=== PATIENT | male | born 1950 | race Caucasian/White ===

== ENCOUNTER 2017-12-08 12:47 | Emergency (ER) | payer OTHER, MEDICARE ==
[~2017-12-08] VITALS: Ht 177.8 cm; Wt 81.7 kg
[2017-12-08 13:39] LABS: BASOPHILS ABSOLUTE AUTO 0.04 K/mm3 (0.00-0.23); BASOPHILS PERCENT AUTO 1 % (0-2); EOSINOPHILS ABSOLUTE AUTO 0.26 K/mm3 (0.00-0.68); EOSINOPHILS PERCENT AUTO 3 % (0-6); Hematocrit 44.2 % (37.0-53.0); Hemoglobin 14.5 g/dL (13.5-17.5); IMMATURE GRAN ABSOLUTE AUTO 0.03 K/mm3 (0.00-0.10); IMMATURE GRAN PERCENT AUTO 0 % (0-1); LYMPHOCYTES ABSOLUTE AUTO 2.16 K/mm3 (0.84-5.20); LYMPHOCYTES PERCENT AUTO 28 % (21-46); MONOCYTES PERCENT AUTO 8 % (4-13); Mean Corpuscular HGB 30.7 pg (26.0-34.0); Mean Corpuscular HGB Conc 32.8 g/dL (31.5-36.5); Mean Corpuscular Volume 93 fL (80-100); Mean Platelet Volume 9.8 fL (9.1-12.4); NEUTROPHILS ABSOLUTE AUTO 4.65 K/mm3 (1.96-9.15); NEUTROPHILS PERCENT AUTO 60 % (41-73); Platelet Count 203 K/mm3 (150-400); RDW Coefficient Variation 13.5 % (11.7-14.2); RDW Standard Deviation 46.3 fL (35.1-46.3); Red Blood Cell Count 4.73 M/mm3 (4.30-5.90); White Blood Cell Count 7.74 K/mm3 (4.00-11.30)
[2017-12-08 14:06] LABS: Albumin, Blood 3.9 g/dL (3.4-5.0); Bilirubin, Total 0.4 mg/dL (0.1-1.0); Bun/Creatinine Ratio 11.1 (12.0-20.0); Calcium, Blood 9.3 mg/dL (8.5-10.1); Creatinine, Blood 1.35 mg/dL (0.60-1.20); Globulin, Blood 4.1 g/dL (2.2-4.0)
[2017-12-08] MEDS ORDERED: ASPI81CH PO (18:34)
[2017-12-08] MEDS ORDERED: AMLO5 PO (18:35)
[2017-12-08] MEDS ORDERED: TRAM50 PO (18:37)
[2017-12-08] MEDS ORDERED: Doxycycline Hy100 MG PO (20:44)
== END 2017-12-08 21:42 | disposition home or self-care (01) ==
LOC: ER 12:47
PROVIDERS: Emergency Medicine
DX: J18.9 Pneumonia, unspecified organism (principal); R04.2 Hemoptysis; I10 Essential (primary) hypertension; F17.210 Nicotine dependence, cigarettes, uncomplicated; Z79.82 Long term (current) use of aspirin; Z79.899 Other long term (current) drug therapy
CPT/HCPCS: 36415; 71046; 71260; 80053; 85025; 96360; 99284; J7030; Q9967

== ENCOUNTER 2021-05-07 10:59 | Day surgery (SDC) | payer MEDICARE, OTHER ==
[~2021-05-07] VITALS: Ht 177.8 cm; Wt 94.0 kg
[~2021-05-07 10:59] MED LIST: AMLO5 PO; ASPI81CH PO; Doxycycline Hy100 MG PO; LOSARTAN POTAS100 M1; METF500; MULVITA; POTA10T; THERA-D2000 UNIT; TRAM50 PO
== END 2021-05-07 13:19 | disposition home or self-care (01) ==
LOC: ORSCSDS 10:59
PROVIDERS: Internal Medicine Gastroenterology
PROC: 0DBH8ZX Excision of Cecum, Via Natural or Artificial Opening Endoscopic, Diagnostic (ICD-10-PCS; principal; 2021-05-07 12:30)
PROC: 0DBN8ZX Excision of Sigmoid Colon, Via Natural or Artificial Opening Endoscopic, Diagnostic (ICD-10-PCS; principal; 2021-05-07 12:30)
DX: Z12.11 Encounter for screening for malignant neoplasm of colon (principal); D12.0 Benign neoplasm of cecum; K57.30 Diverticulosis of large intestine without perforation or abscess without bleeding; K64.8 Other hemorrhoids; Z86.010 Personal history of colon polyps; N18.9 Chronic kidney disease, unspecified; N40.0 Benign prostatic hyperplasia without lower urinary tract symptoms; E78.5 Hyperlipidemia, unspecified; Z79.899 Other long term (current) drug therapy; Z87.891 Personal history of nicotine dependence
CPT/HCPCS: 88305; J2405; J2704

== ENCOUNTER → 2023-08-20 | Outpatient (CLI) | payer OTHER | LOC: LAB SHORT 11:58 → LAB 11:58 | DX: L72.3 Sebaceous cyst (principal) | CPT/HCPCS: 87070; 87205 ==

== ENCOUNTER 2023-12-25 13:40 | Emergency (ER) | payer OTHER ==
[~2023-12-25] VITALS: Ht 177.8 cm; Wt 97.5 kg
[2023-12-25 14:16] LABS: BASOPHILS ABSOLUTE AUTO 0.03 K/mm3 (0.00-0.23); BASOPHILS PERCENT AUTO 1 % (0-2); EOSINOPHILS ABSOLUTE AUTO 0.16 K/mm3 (0.00-0.68); EOSINOPHILS PERCENT AUTO 2 % (0-6); Hematocrit 48.3 % (37.0-53.0); Hemoglobin 16.1 g/dL (13.5-17.5); IMMATURE GRAN ABSOLUTE AUTO 0.01 K/mm3 (0.00-0.10); IMMATURE GRAN PERCENT AUTO 0 % (0-1); LYMPHOCYTES ABSOLUTE AUTO 2.03 K/mm3 (0.84-5.20); LYMPHOCYTES PERCENT AUTO 31 % (21-46); MONOCYTES ABSOLUTE AUTO 0.57 K/mm3 (0.16-1.47); MONOCYTES PERCENT AUTO 9 % (4-13); Mean Corpuscular HGB 30.8 pg (26.0-34.0); Mean Corpuscular HGB Conc 33.3 g/dL (31.5-36.5); Mean Corpuscular Volume 93 fL (80-100); Mean Platelet Volume 9.8 fL (9.1-12.4); NEUTROPHILS ABSOLUTE AUTO 3.81 K/mm3 (1.96-9.15); NEUTROPHILS PERCENT AUTO 58 % (41-73); Platelet Count 190 K/mm3 (150-400); RDW Coefficient Variation 13.5 % (11.7-14.2); RDW Standard Deviation 46.3 fL (35.1-46.3); Red Blood Cell Count 5.22 M/mm3 (4.30-5.90); White Blood Cell Count 6.61 K/mm3 (4.00-11.30)
[2023-12-25 14:35] LABS: Albumin/Globulin Ratio 1.1 (0.8-1.8); Bilirubin, Total 0.6 mg/dL (0.1-1.0); Bun/Creatinine Ratio 10.7 (12.0-20.0); Calcium, Blood 9.4 mg/dL (8.5-10.1); Creatinine, Blood 1.68 mg/dL (0.60-1.20); Globulin, Blood 3.8 g/dL (2.2-4.0); Potassium, Blood 4.1 mmol/L (3.5-5.5); Total Protein, Blood 7.8 g/dL (6.4-8.2)
[2023-12-25] MEDS ORDERED: Losartan Potassium 50 MG Tab PO ONE (15:55)
[2023-12-25 16:15] VITALS: BP 144/101
[2023-12-25] MEDS ORDERED: LOSARTAN POTAS100 M1 PO (16:47)
== END 2023-12-25 16:53 | disposition home or self-care (01) ==
LOC: ER 13:40
PROVIDERS: Physician Assistant
DX: I49.3 Ventricular premature depolarization (principal); I10 Essential (primary) hypertension; Z79.84 Long term (current) use of oral hypoglycemic drugs; Z79.899 Other long term (current) drug therapy
CPT/HCPCS: 71046; 80053; 83735; 84484; 85025; 93005; 93010; 99284-25; A9270

== ENCOUNTER 2024-04-15 13:52 | Observation (INO) | payer OTHER ==
[~2024-04-15] VITALS: Ht 177.8 cm; Wt 97.5 kg
[~2024-04-15 13:52] MED LIST changes: +LOSARTAN POTAS100 M1 PO
[2024-04-15 14:12] VITALS: BP 126/104
[2024-04-15 14:48] LABS: BASOPHILS ABSOLUTE AUTO 0.04 K/mm3 (0.00-0.23); BASOPHILS PERCENT AUTO 1 % (0-2); EOSINOPHILS ABSOLUTE AUTO 0.14 K/mm3 (0.00-0.68); EOSINOPHILS PERCENT AUTO 2 % (0-6); Hematocrit 44.9 % (37.0-53.0); Hemoglobin 15.2 g/dL (13.5-17.5); IMMATURE GRAN ABSOLUTE AUTO 0.02 K/mm3 (0.00-0.10); IMMATURE GRAN PERCENT AUTO 0 % (0-1); LYMPHOCYTES ABSOLUTE AUTO 1.73 K/mm3 (0.84-5.20); LYMPHOCYTES PERCENT AUTO 24 % (21-46); MONOCYTES ABSOLUTE AUTO 0.53 K/mm3 (0.16-1.47); MONOCYTES PERCENT AUTO 7 % (4-13); Mean Corpuscular HGB 31.7 pg (26.0-34.0); Mean Corpuscular HGB Conc 33.9 g/dL (31.5-36.5); Mean Corpuscular Volume 94 fL (80-100); Mean Platelet Volume 10.1 fL (9.1-12.4); NEUTROPHILS ABSOLUTE AUTO 4.88 K/mm3 (1.96-9.15); NEUTROPHILS PERCENT AUTO 67 % (41-73); Platelet Count 200 K/mm3 (150-400); RDW Standard Deviation 48.2 fL (35.1-46.3); White Blood Cell Count 7.34 K/mm3 (4.00-11.30)
[2024-04-15 15:08] LABS: Source, Urine Clean Catch
[2024-04-15 15:13] LABS: Ethanol (Alcohol), Blood, Med <3 mg/dL; Salicylate <1.7 mg/dL (2.8-20.0)
[2024-04-15 15:23] LABS: Acetaminophen, Random <2.0 ug/mL (10.0-30.0); Alanine Aminotransfer (ALT/SGP 30 U/L (12-78); Alk Phos 87 U/L (50-136); Anion Gap 9 mmol/L (3-11); Aspartate Aminotrans (AST/SGOT 19 U/L (12-37); Bilirubin, Total 0.7 mg/dL (0.1-1.0); Blood Urea Nitrogen 23 mg/dL (8-24); Bun/Creatinine Ratio 12.7 (12.0-20.0); CO2, Blood 25 mmol/L (21-32); Calcium, Blood 9.2 mg/dL (8.5-10.1); Chloride, Blood 107 mmol/L (98-108); Creatinine, Blood 1.81 mg/dL (0.60-1.20); Glomerular Filtration Rate 39 (60-); Glucose, Blood 127 mg/dL (70-99); Potassium, Blood 4.2 mmol/L (3.5-5.5); Sodium, Blood 137 mmol/L (136-145)
[2024-04-15 15:25] LABS: Appearance, Urine Clear (Clear); Bilirubin, Urine Neg (Neg); Blood, Urine Neg (Neg); Color, Urine Yellow (P-Yellow); Glucose Qualitative, Urine Neg (Neg); Ketones, Urine Neg (Neg); Leukocyte Esterase, Urine Neg (Neg); Nitrite, Urine Neg (Neg); Protein, Urine 1+ (Neg); Urobilinogen, Urine NORM (Normal); pH, Urine 6.5 (5.0-8.0)
[2024-04-15 15:44] LABS: U Amphetamine Screen Not Detected; U Barbituate Screen Not Detected; U Benzodiazapine Screen Not Detected; U Buprenorphine Screen Not Detected; U Cannabinoids Screen Not Detected; U Cocaine Screen Not Detected; U Methadone Screen Not Detected; U Methamphetamine Screen Not Detected; U Opiates Screen Not Detected; U Oxycodone Screen Not Detected; U Phencyclidine Screen Not Detected
[2024-04-16] MEDS ORDERED: FISH OIL 1,0001 EA10 (04:20)
[2024-04-16] MEDS ORDERED: ASPI81CH (04:20)
== END 2024-04-16 03:05 | disposition other institution (70) ==
LOC: ER 13:52 → EOR 13:53
PROVIDERS: Student in an Organized Health Care Education/Training Program; ADMIT Emergency Medicine
DX: F32.A Depression, unspecified (principal); I12.9 Hypertensive chronic kidney disease with stage 1 through stage 4 chronic kidney disease, or unspecified chronic kidney disease; N18.32 Chronic kidney disease, stage 3b; R73.03 Prediabetes; Z79.82 Long term (current) use of aspirin; Z79.899 Other long term (current) drug therapy; Z98.890 Other specified postprocedural states; Z88.8 Allergy status to other drugs, medicaments and biological substances
CPT/HCPCS: 80053; 84443; 85025; 86592; 93005; 93010; 99285-25; G0378; G0480

== ENCOUNTER 2024-04-16 01:53 | Inpatient (IN) | payer OTHER ==
[~2024-04-16] VITALS: Ht 177.8 cm; Wt 97.0 kg
[2024-04-16] MEDS ORDERED: FISH OIL 1,0001 EA10 (04:20)
[2024-04-16] MEDS ORDERED: ASPI81CH (04:20)
[2024-04-16 04:57] VITALS: BP 143/94
--- NOTE | 2024-04-16 05:14 | NUR ---
Patient has requested for only his daughter Nancy Bronson to know that he is here. No code word for phone calls has been set up at this time. Patient has two toothburshes, and denture cleaner signs in his hygene bag.
--- NOTE | 2024-04-16 05:40 | NUR ---
SHIFT SUMMARY: PATIENT ARRIVED LATE IN THE SHIFT AND WAS ADMITTED PER PROTOCOL. HE HAD A CUP OF FLUID AND WENT TO HIS ROOM DRESSED IN CLOTH SCRUBS, NO SLIP SOCKS AND INDOOR SHOE SLIPPERS. HE WENT TO BED AND WAS NOTED TO BE RESTING QUIETLY WITH EYES CLOSED AND RESPIRATIONS CONFIRMED. NOTE THAT PATIENT IS QUITE MALODOROUS.
[2024-04-16] MEDS ORDERED: RisperiDONE 1 MG Tab PO PRN (07:55)
[2024-04-16] MEDS ORDERED: LORazepam 1 MG Tab PO PRN ×3 (07:55→08:05)
[2024-04-16] MEDS ORDERED: Melatonin 3 MG Tab PO PRN (07:55)
[2024-04-16] MEDS ORDERED: Ibuprofen 600 MG Tab PO PRN (07:55)
[2024-04-16] MEDS ORDERED: QUEtiapine Fumarate 25 MG Tab PO PRN (07:55)
[2024-04-16] MEDS ORDERED: OLANZapine ODT 10 MG Tab MM PRN ×2 (08:00)
[2024-04-16] MEDS ORDERED: LORazepam 2 MG/ML 1ML Injection IM PRN (08:00)
[2024-04-16] MEDS ORDERED: Haloperidol 5 MG Tab PO PRN ×2 (08:00)
[2024-04-16] MEDS ORDERED: Haloperidol Lactate Inj. 5 MG/ML Injection IM PRN (08:00)
[2024-04-16] MEDS ORDERED: DiphenhydrAMINE HCl 50 MG/ML 1ML Vial IM PRN (08:00)
[2024-04-16] MEDS ORDERED: DiphenhydrAMINE HCl 50 MG Cap PO PRN ×2 (08:05)
[2024-04-16] MEDS ORDERED: OLANZapine 10 MG Vial IM PRN (08:05)
[2024-04-16] MEDS ORDERED: Aluminum Hydroxide 320MG/5ML 473 ML PO PRN (08:05)
[2024-04-16] MEDS ORDERED: Acetaminophen 325 MG TABLET PO PRN (08:05)
[2024-04-16] MEDS ORDERED: LORazepam 2 MG Tab PO PRN (08:05)
--- NOTE | 2024-04-16 09:14 | NUR ---
0800 PT STATES THAT HE 'IS DEPRESSED AND EXHAUSTED'. HE STATES THAT HE 'JUST DOESN'TKNOW WHAT TO DO'. DENIES TO BE SI AT THIS TIME. PT IS TRYING TO PAINT HIS HOUSE AND HIS 'IS CONSTANTLY YELLING AT HIM". HE FEELS THAT HE PHSYICALLY CANNOT DO THE PAINTING NOW. HE DECIDED TO GET SOME HELP. HIS DAUGHTER JESSICA IS HIS SUPPORT SYSTEM. WILL CONTINUE TO MONITOR.
[2024-04-16] MEDS ORDERED: Citalopram Hydrobromide 20 MG Tab PO SCH (12:00)
[2024-04-16 13:25] LABS: CHOL/HDL RATIO 5.4; Cholesterol 207 mg/dL (50-200); HDL Cholesterol 38 mg/dL (>39); LDL/HDL RATIO 3.8; Low Density Lipoprotein Chol 145 mg/dL (0-110); Triglycerides 119 mg/dL (30-160); Very Low Density Lipoprot Chol 23 mg/dL (6-32)
--- NOTE | 2024-04-16 15:08 | NUR ---
APPROX. 1010 DR RODRIGUEZ INTO SEE PT. 1415 DR LONDONO INTO SEE PT FOR HOSPITAL CONSULT. PT STATES HE IS TIRED AND DID NOT WANT TO SHOWER TODAY BUT WILL IN THE MORNING. HE HAS SLEPT THROUGH THE DAY SO FAR.
[2024-04-16 16:54] VITALS: BP 133/92
[2024-04-16] MEDS ORDERED: Losartan Potassium 50 MG Tab PO SCH (17:00)
--- NOTE | 2024-04-16 20:40 | NUR ---
PHYSICAL ASSESSMENT: PATIENT IS A AND 0X4, BUT NOT COMPLETELY SURE OF THE DATE. PAIN LEVEL IS A 0/10 PER PATIENT. LUNGS: LEFT LUNG CLEAR THROUGHOUT, RIGHT LUNG HAS SOME CRACKLES IN LOBES. PATIENT STATES THAT HE HAS NOT "BEEN DIAGNOSED, BUT I KNOW I HAVE COPD". HE ADMITS TO HAVING SMOKED FOR 30 YEARS, AND STATES THAT HE QUIT 4 YEARS AGO. HRR, STATES SEES A RETAIL BUYER BUT IS UNCLEAR ABOUT DX. ABLE TO COMMUNICATE NEEDS. RATHER SHY AND HESITANT, DOES NOT ADVOCATE WELL FOR SELF. BOWEL TONES X4, STATES HAD A BM YESTERDAY, 03/15/24 " FAR I REMEMBER". CONTINUING TO MONITOR FOR ANY CHANGES.
[2024-04-16 21:02] VITALS: BP 147/97
[2024-04-17 06:56] LABS: Bun/Creatinine Ratio 13.1 (12.0-20.0); Calcium, Blood 9.3 mg/dL (8.5-10.1); Creatinine, Blood 1.68 mg/dL (0.60-1.20); Potassium, Blood 4.1 mmol/L (3.5-5.5)
[2024-04-17 08:51] VITALS: BP 143/94
[2024-04-17] MEDS ORDERED: Aspirin 81 MG Chew PO SCH (09:00)
--- NOTE | 2024-04-17 09:49 | NUR ---
ASSUMED PT CARE @0715. PT RESTING IN BED UNTIL 0900. PT REPORTS HE SLEPT ON AND OFF THROUGH-OUT NIGHT. PT REPORTS THAT HE HAS THOUGHT OF "ENDING HIS LIFE" LAST NIGHT. HE DENIES HAVING A PLAN. HE REPORTS MARITAL ISSUES TO THIS RN AND REPORTS HE "JUST DON'T KNOW IF I CAN TAKE IT ANYMORE" HE REPORTS THAT HIS IS VEBALLY ABUSIVE TO HIM AND "YELLS AT HIM CONSTANTLY" HE REPORTS THAT DEPRESSION OVER NOT BEING ABLE TO PHYSICALLY PERFORM TASK. PT REPORTS THAT HE DOES HAVE SUPPORT FROM HIS DAUGHTER AND COULD MOVE IN WITH HER. THIS RN USED ACTIVE LISTENING AN THANKED PT FOR SHARING AND ENCOURAGED PT TO TALKED TO THIS RN ANYTIME HE FEELS LIKE SHARING. PT DAUGHTER CALLED AND WILL BE IN TO VISIT AT 1400. PT UP TO SHOWER BUT DECLINED BREAKFAST. HE STAES HE IS NOT A BREAKFAST PERSON. HE DENIES ANY FURTHER NEEDS AT THIS TIME.
[2024-04-17] MEDS ORDERED: Loperamide HCl 2 MG Cap PO PRN (14:55)
[2024-04-17] MEDS ORDERED: Menthol/Methyl Salicylate Crm 85 GM TUBE TOP PRN (15:00)
[2024-04-17 17:44] VITALS: BP 144/82
--- NOTE | 2024-04-17 17:47 | NUR ---
SHIFT SUMMARY PT UP FOR THE DAY. PARTICIPATED WITH [employer]. WATCHED TV. REPORTED SOME SI LAST NIGHT. MOOD WAS CALM TODAY. REPORTS HE IS GRATEFUL"FOR THE BREAK TODAY" AND THAT HE "NEEDED IT" DAUGHTER UNABLE TO VISIT TODAY BUT PLANS TO COME VISIT TOMORROW. PT ON Q8HR VS CHECKS. BP TRENDING DOWN WITH PLAN TO INCREASE LOSARTAN 50MG TO PT HOME DOSE OF 100MG STARTING TOMORROW. PT REPORTS LOOSE STOOL TODAY ORDER RECIEVED FOR IMODIUM. PT HAS A BOOK AND IS RESTING IN ROOM. HE DENIES ANY CUURENT NEEDS.
[2024-04-17] MEDS ORDERED: QUEtiapine Fumarate 100 MG Tab PO SCH (21:00)
--- NOTE | 2024-04-17 21:17 | NUR ---
Pt denies SI, HI, A/V Hallucinations at this time. Pt states he was feeling overwhelmed, overtired, stressed, tired of being yelled at at home. Pt has no plan or thoughts of self harm at this time. Pt up social seen on unit with other patients eating snack, watching TV. Pt states he has caught up on sleep and happy for stressors to be removed.
--- NOTE | 2024-04-17 21:24 | NUR ---
Pt calm, quiet, cooperative, medication compliant, interested in medications action and indications. Denies SI, HI, Denies, A/V Hallucinations, no observed psychotic symptoms.
[2024-04-17 21:37] VITALS: BP 122/84
[2024-04-18] MEDS ORDERED: Docosahexanoic Acid/EPA 1,000 MG CAP PO SCH (09:00)
[2024-04-18 09:34] VITALS: BP 151/99
[2024-04-18] MEDS ORDERED: Losartan Potassium 50 MG Tab PO ONE (13:00)
[2024-04-18 13:03] VITALS: BP 111/78
--- NOTE | 2024-04-18 16:33 | NUR ---
PT HAD AN UNEVENTFUL DAY. HE SLEPT UNTIL LUNCH. REPORTS HE WAS "GROGGY" FROM MEDICATIONS BUT SLEPT "GREAT" PT DENIES ANY OTHER MEDICATION SIDE EFFECTS. DENIES LOOSE STOOL TODAY AND HAS GOOD APPETITE. REPORTS THAT HE FEELS BETTER AND IS NO LONGER HAVING ANY SI. HE IS COPPERATIVE AND ENGAGED IN CARE. POSSIBLE DC TOMORROW.
[2024-04-18 19:37] VITALS: BP 96/67
--- NOTE | 2024-04-18 22:10 | NUR ---
Pt calm, cooperative, medication compliant, seen on unit social eating snack with peers, watching TV. Pt able to teach back action and indication of medication. Medications administered as ordered, well tolerated. No issues.
--- NOTE | 2024-04-18 22:12 | NUR ---
Pt calm cooperative, medication compliant, medication adninitered as ordered, well tolerated. Pt seen on unit social, eating snack with peers, watching TV, No issues.
--- NOTE | 2024-04-18 22:18 | NUR ---
Pt calm, cooperative, medication compliant, medication administered as ordered, pt taught back action and indication. Medications well tolerated. NO issues.
--- NOTE | 2024-04-18 22:22 | NUR ---
Pt calm, cooperative, medicaiton compliant. Meds well tolerated, Pt seen on unit social, eating snack with peers, watching TV. No Issues.
--- NOTE | 2024-04-18 22:31 | NUR ---
Pt calm cooperative seen on unit social eating snack with peers watching TV, NO Issues.
--- NOTE | 2024-04-18 22:37 | NUR ---
Pt calm, cooperative, med compliant, meds administered as ordered, meds well tolerated. Pt seen on unit social watching TV with peers. NO Issues.
--- NOTE | 2024-04-18 22:56 | NUR ---
Pt calm, cooperative, medication compliant, pt denies SI, HI, A/V Hallucinations at this time. no issues.
--- NOTE | 2024-04-19 07:47 | NUR ---
MORNING ASSESSMENT: PT DENIED SI, HI, AVH, AND PAIN. HIS PHYSICAL ASSESSMENT WAS WNL. HE REPORTED "I FEEL GOOD THIS MORNING." HE DENIED GROOGYNESS. PT WAS ENCOURAGED TO TAKE PART IN GROUPS TODAY AND HE APPEARED TO BE RECEPTIVE. HE IS PRESENTLY RESTING IN BED.
[2024-04-19 08:45] VITALS: BP 115/81
[2024-04-19] MEDS ORDERED: Losartan Potassium 50 MG Tab PO SCH ×2 (09:00)
[2024-04-19 09:45] LABS: Albumin, Blood 3.8 g/dL (3.4-5.0); Anion Gap 9 mmol/L (3-11); Blood Urea Nitrogen 26 mg/dL (8-24); Bun/Creatinine Ratio 13.3 (12.0-20.0); CO2, Blood 27 mmol/L (21-32); Calcium, Blood 9.6 mg/dL (8.5-10.1); Chloride, Blood 106 mmol/L (98-108); Creatinine, Blood 1.95 mg/dL (0.60-1.20); Glomerular Filtration Rate 36 (60-); Glucose, Blood 115 mg/dL (70-99); Phosphorus, Blood 3.5 mg/dL (2.5-4.9); Potassium, Blood 4.5 mmol/L (3.5-5.5); Sodium, Blood 137 mmol/L (136-145)
--- NOTE | 2024-04-19 15:35 | NUR ---
At approximately 1400pm [facility] met with pt to review any possible concerns and or questions he may have before discharge of 04/20/2024. Pt advised that he is feeling a lot better than when he first arrived and not SI. Pt stated that once he discharges his daughter (i.e. Nancy) would be picking him up. Pt stated he is not interested in utilizing a psychiatrist or therapist, however, willing to obtain the MH resoruces provided by [facility]. [facility] provided pt with resources regarding elderly MH services, individual therapy, grief counseling and psychiatric providers.
--- NOTE | 2024-04-19 15:39 | NUR ---
At approximately 1435 to 1450 [facility] spoke with daughter of pt (i.e. Nancy) in person regarding transportation of pt for 04/20/2024. Nancy requested if discharge could be at 1330 because that is the best time for her to supply chain specialist pt. Nancy discussed with [facility]OLE that she has spoken with pt in order to encourage to be a healthy support system for pt. Nancy advised "I think she gets it now. She's wants to support him and is willing, but she wants to support him in her own way, but I think she gets it now, that she has to support him in the way he needs" while refrencing the pt's as she. Nancy advised that she has concerns that pt has not been able to process grief effectively for the different people and job he has lost over the span of ten years. [facility] advised that she will provide Nancy with grief resources tomorrow when picking pt up for discharge.
--- NOTE | 2024-04-19 17:27 | NUR ---
PT WENT OUT ONTO THAT PATIO AND READ FOR ABOUT AN HOUR AND READ. HE THEN TOOK A NAP. HE HAS BEEN PLEASANT AND APPEARED TO BE IN GOOD HUMOR. HE SHOWERED AND WASHED HIS HAIR THIS MORNING. HE HAS HAD NO COMPLAINTS THIS AFTERNOON AND IS NOW EATING DINNER WITH HIS PEERS.
--- NOTE | 2024-04-19 18:00 | NUR ---
PT stated he is feeling ready to leave the [facility] and to go home, I asked if he would be going back to his house with his , and he said "Probably not, I think I am going to go to my daughters for a little while. I am nervous to see my and go back to my house." I asked if he would like to talk about it, he said no. I asked if he had a good visit with his daughter, he said "Yes absolutely, she started painting my house today!" I said that was great and maybe staying at his daughters for a little while after leaving the [facility] will help the transition go smooth. He agreed. PT has spent a lot of time reading today. After his shower, I helped PT brush his hair, he stated that nobody has ever done that for him before but that he was very thankful and would be sure to ask his daughter to help after discharge. PT also reported feeling brain fog in the mornings since starting Sero[place]il, but said it has gotten better throughout the day.
[2024-04-19 20:20] VITALS: BP 103/70
--- NOTE | 2024-04-20 04:25 | NUR ---
Patient up in the evening, watching TV with other patients. he is pleasant and cooperative with care, and indicated that he had no suicidal ideation and was excited that he was going to go home with his daughter in the AM. Around 1999, he retired to bed and slept straight through the night. will continue close monitoring
[2024-04-20] MEDS ORDERED: Losartan Potassium 50 MG Tab PO SCH (09:00)
[2024-04-20 10:08] VITALS: BP 108/92
[2024-04-20] MEDS ORDERED: Celexa20 MG PO (11:28)
[2024-04-20] MEDS ORDERED: LOSA50 PO (11:28)
[2024-04-20] MEDS ORDERED: QUET100 PO (11:29)
--- NOTE | 2024-04-20 12:16 | NUR ---
ASSUMED PT CARE @0715. PT AA&OX4. PT DENIES SI, AH, VH. HE REPORTS HE IS FEELING "GOOD" DISCHARGE ORDERS RECIEVED. PT EDUCATED ON NEW DX OF BIPOLAR 2, NEW MEDICATIONS, AND POSSIBLE SIDE EFFECTS. HANDOUTS ALSO PROVIDED. PT ENGAGED AND ASKED QUESTIONS. PT VERBALIZED UNDERSTANDING AND STATES HE HAS NO FURTHER QUESTIONS AT THIS TIME. PRESCIPTIONS FAXED TO [facility]. PT REPORTS HE WILL GO TO [facility] AND PCP WITHIN ONE WEEK OF DC
--- NOTE | 2024-04-20 14:17 | NUR ---
ASSUMED PT CARE @0715. PT AA&OX4. PT IN GOOD SPIRITS ABOUT GOING TO STAY WITH DAUGHTER. HE DENIES SI AT THIS TIME. DENIES ANY ADVERSE SIDE EFFECTS FROM NEW MEDS. PT EDUCATED ON MEDICATIONS AND DX. REFERRAL SENT TO [facility]. EDUCATION HANDOUTS ON SI AND MDD REVIEWED. PT HAS NO QUESTIONS OR CONCERNS AT THIS TIME. DAUGHTER THIERNO TO PICK PT UP AND DC TO HER HOME
== END 2024-04-20 13:51 | disposition home or self-care (01) | DRG 885 ==
LOC: BHU 01:53
PROVIDERS: Family Medicine; Hospitalist; ADMIT Student in an Organized Health Care Education/Training Program
DX: F33.2 Major depressive disorder, recurrent severe without psychotic features (principal); R45.851 Suicidal ideations; I12.9 Hypertensive chronic kidney disease with stage 1 through stage 4 chronic kidney disease, or unspecified chronic kidney disease; N18.32 Chronic kidney disease, stage 3b; R25.2 Cramp and spasm; R19.7 Diarrhea, unspecified; E78.5 Hyperlipidemia, unspecified; I25.10 Atherosclerotic heart disease of native coronary artery without angina pectoris; R73.03 Prediabetes; Z88.8 Allergy status to other drugs, medicaments and biological substances; Z79.82 Long term (current) use of aspirin; Z87.891 Personal history of nicotine dependence; Z79.899 Other long term (current) drug therapy; Z98.890 Other specified postprocedural states
CPT/HCPCS: 36415; 80048; 80053; 80061; 80069; 83036; 84443; 85025; 86592; 93005; 93010; 99285-25; A9270; G0378; G0480